=== PATIENT | female | born 1995 | race American Indian/Alaskan Native ===

== ENCOUNTER 2020-11-25 20:52 | Emergency (ER) | payer MEDICAID ==
[~2020-11-25] VITALS: Ht 162.6 cm; Wt 72.7 kg
[2020-11-25 23:49] LABS: URINE HCG NEGATIVE (NEG)
[2020-11-25 23:51] LABS: BASOPHILS % (AUTO) 0.5 % (0-1); EOSINOPHILS % (AUTO) 0.5 % (0-6); HEMATOCRIT 38.7 % (35.0-45.0); HEMOGLOBIN 13.3 g/dl (12.0-16.0); LYMPHOCYTES # (AUTO) 1.2 X10'3 (1.1-4.8); LYMPHOCYTES % (AUTO) 26.7 % (21-51); MEAN CORPUSCULAR HEMOGLOBIN 30.5 PG (27.0-31.0); MEAN CORPUSCULAR HGB CONC 34.2 g/dL (33.0-36.5); MEAN CORPUSCULAR VOLUME 89.1 FL (78-98); MEAN PLATELET VOLUME 8.3 FL (7.4-10.4); MONOCYTES # (AUTO) 0.3 X10'3 (0-0.9); MONOCYTES % (AUTO) 7.3 % (2-12); NEUTROPHILS # (AUTO) 2.9 X10'3 (1.8-7.7); PLATELET COUNT 262 X10'3 (140-440); RED BLOOD COUNT 4.35 X10'6 (4.20-5.60); RED CELL DISTRIBUTION WIDTH 12.9 % (11.5-14.5); WHITE BLOOD COUNT 4.5 X10'3 (4.5-11.0)
[2020-11-26 00:01] LABS: CLARITY,URINE CLOUDY (Clear); COLOR,URINE YELLOW (Yellow); GLUCOSE, URINE NEGATIVE (Neg); KETONES,URINE TRACE mg/dl (Neg); LEUKOCYTE ESTERASE ,URINE SMALL (Neg); NITRITES, URINE NEGATIVE (Neg); OCCULT BLOOD,URINE NEGATIVE (Neg); PH,URINE 6.5 (4.8-8.0); PROTEIN,URINE TRACE mg/dl (Neg)
[2020-11-26 00:03] LABS: ALANINE AMINOTRANSFERASE 35 U/L (12-78); ALBUMIN 3.6 G/DL (3.4-5.0); ALBUMIN/GLOBULIN RATIO 1.2 (1.1-1.5); ALKALINE PHOSPHATASE 70 IU/L (46-116); ANION GAP 9 (8-16); ASPARTATE AMINO TRANSFERASE 18 U/L (10-37); BILIRUBIN,TOTAL 0.3 MG/DL (0.1-1.0); BLOOD UREA NITROGEN 6 MG/DL (7-18); BUN/CREATININE RATIO 8.1 (6.6-38.0); CALCIUM 8.1 MG/DL (8.5-10.1); CHLORIDE 107 MMOL/L (99-107); CREATININE 0.74 MG/DL (0.40-0.90); GLUCOSE 95 MG/DL (70-104); SODIUM 143 MMOL/L (135-145); TOTAL CARBON DIOXIDE 27.1 MMOL/L (24-32); TOTAL PROTEIN 6.7 G/DL (6.4-8.2); eGFR > 90 ML/MIN
[2020-11-26 00:11] LABS: URINE AMPHETAMINE SCREEN POSITIVE (Neg); URINE BARBITUATE SCREEN NEGATIVE (Neg); URINE BENZODIAZEPINES SCREEN NEGATIVE (Neg); URINE CANNABINOID SCREEN POSITIVE (Neg); URINE COCAINE SCREEN NEGATIVE (Neg); URINE METHADONE SCREEN NEGATIVE (Neg); URINE OPIATE SCREEN NEGATIVE (Neg); URINE PHENCYCLIDINE SCREEN NEGATIVE (Neg)
[2020-11-26 00:14] LABS: UA COLLECTION TYPE CLN CATCH MIDSTREAM
[2020-11-26 00:15] LABS: ETHANOL < 0.010 GM/DL (0.0-0.010)
[2020-11-26 00:15] LABS: RBC,URINE NONE SEEN /HPF (0-2); WBC,URINE 0-4 /HPF (0-4)
[2020-11-26 00:16] LABS: BACTERIA,URINE 3+ /HPF (Neg); SQUAMOUS EPITHELIAL CELL,UR MANY /LPF (FEW)
[2020-11-26 00:17] LABS: CAL OXALATE CRYSTALS 4+ /HPF (NEGATIVE); MUCUS STRANDS MANY /LPF (Neg)
--- NOTE | 2020-11-26 03:49 | NUR ---
PT VOICES NO S/I OR H/I. PT MAY BE AN ELOPEMENT RISK. PT STATES " I WAS TESTED POSITIVE IN RESIDENTIAL AND THEY TOLD ME TO COME CHECK ON THE BABY". pT STATES "I CAN FEEL THE BABY UP IN MY NECK BUT ITS STILL ATTACHED". PT APPEAR TO SHOW NO S/S OD ACUTE DISTRESS. VITAL WNL , NO REPORTS OF PAIN.
[2020-11-26] MEDS ORDERED: potassium Cl 20 mEq SR tablet PO STA (04:10)
--- NOTE | 2020-11-26 04:24 | NUR ---
PT USING RACIAL SLURS TOWARDS STAFF MEMBERS. PT YELLING AT MD STATING "IF I CANT BE HERE THEN I DONT WANT TO BE HERE." PT REFUSED ORDERED MEDICATION. AWARE.
[2020-11-26 04:31] VITALS: BP 121/81
== END 2020-11-26 04:40 | disposition home or self-care (01) ==
LOC: EDBD 20:53 → ER 20:53
DX: F19.159 Other psychoactive substance abuse with psychoactive substance-induced psychotic disorder, unspecified (principal); E87.6 Hypokalemia; F12.10 Cannabis abuse, uncomplicated
CPT/HCPCS: 36415; 80053; 80305; 80320; 81001; 81003; 81025; 84443; 85025; 99283

== ENCOUNTER 2020-11-29 21:00 | Emergency (ER) | payer MEDICAID ==
[~2020-11-29] VITALS: Ht 157.5 cm; Wt 68.2 kg
[2020-11-29 21:50] LABS: URINE HCG NEGATIVE (NEG)
[2020-11-29 22:11] LABS: URINE AMPHETAMINE SCREEN POSITIVE (Neg); URINE BARBITUATE SCREEN NEGATIVE (Neg); URINE BENZODIAZEPINES SCREEN NEGATIVE (Neg); URINE CANNABINOID SCREEN POSITIVE (Neg); URINE COCAINE SCREEN NEGATIVE (Neg); URINE METHADONE SCREEN NEGATIVE (Neg); URINE OPIATE SCREEN NEGATIVE (Neg); URINE PHENCYCLIDINE SCREEN NEGATIVE (Neg)
[2020-11-29 22:21] LABS: BASOPHILS % (AUTO) 0.4 % (0-1); EOSINOPHILS # (AUTO) 0.1 X10'3 (0-0.9); EOSINOPHILS % (AUTO) 1.1 % (0-6); HEMATOCRIT 38.7 % (35.0-45.0); HEMOGLOBIN 13.4 g/dl (12.0-16.0); LYMPHOCYTES # (AUTO) 1.7 X10'3 (1.1-4.8); LYMPHOCYTES % (AUTO) 25.9 % (21-51); MEAN CORPUSCULAR HEMOGLOBIN 30.4 PG (27.0-31.0); MEAN CORPUSCULAR HGB CONC 34.6 g/dL (33.0-36.5); MEAN PLATELET VOLUME 7.9 FL (7.4-10.4); MONOCYTES # (AUTO) 0.5 X10'3 (0-0.9); MONOCYTES % (AUTO) 7.2 % (2-12); NEUTROPHILS # (AUTO) 4.3 X10'3 (1.8-7.7); NEUTROPHILS % (AUTO) 65.4 % (42-75); PLATELET COUNT 278 X10'3 (140-440); RED CELL DISTRIBUTION WIDTH 12.7 % (11.5-14.5); WHITE BLOOD COUNT 6.5 X10'3 (4.5-11.0)
[2020-11-29 22:26] LABS: ALANINE AMINOTRANSFERASE 30 U/L (12-78); ALBUMIN 3.9 G/DL (3.4-5.0); ALBUMIN/GLOBULIN RATIO 1.3 (1.1-1.5); ALKALINE PHOSPHATASE 79 IU/L (46-116); ANION GAP 12 (8-16); ASPARTATE AMINO TRANSFERASE 13 U/L (10-37); BILIRUBIN,TOTAL 0.4 MG/DL (0.1-1.0); BLOOD UREA NITROGEN 5 MG/DL (7-18); BUN/CREATININE RATIO 5.9 (6.6-38.0); CALCIUM 8.3 MG/DL (8.5-10.1); CHLORIDE 108 MMOL/L (99-107); CREATININE 0.85 MG/DL (0.40-0.90); ETHANOL < 0.010 GM/DL (0.0-0.010); GLUCOSE 85 MG/DL (70-104); SODIUM 144 MMOL/L (135-145); TOTAL CARBON DIOXIDE 24.1 MMOL/L (24-32); TOTAL PROTEIN 6.8 G/DL (6.4-8.2); eGFR 82 ML/MIN
[2020-11-29] MEDS: potassium Cl 20 mEq SR tablet PO STA ×2 (22:47→23:05)
--- NOTE | 2020-11-29 23:06 | NUR ---
pt refused the potassium replacement medication.
[2020-11-29] MEDS ORDERED: potassium Cl 20 mEq SR tablet PO STA (23:41)
--- NOTE | 2020-11-30 01:44 | NUR ---
PT RESTING WITH EYES CLOSED. RESPIRATIONS EVEN AND NORMAL.
--- NOTE | 2020-11-30 03:39 | NUR ---
PT AWOKE AND GOT OUT OF BED AND ATE A PACKAGE OF CRACKERS THEN GOT BACK INTO BED AND PULLED THE COVERIS TO HER SHOUDERS AND CLOSED HER EYES.
--- NOTE | 2020-11-30 05:11 | NUR ---
Pt remains asleep. Lying on her left side with blankets covering to her shouders. RR 14 and unlabored.
--- NOTE | 2020-11-30 08:24 | NUR ---
PACKET FAXED TO [facility]
--- NOTE | 2020-11-30 11:04 | NUR ---
[facility] ATTEMPT[facility] TO MAKE ARRAINGMENTS WITH PTS SISTER TO COME PICK HER UP.
--- NOTE | 2020-11-30 12:46 | NUR ---
PER [facility] PTS SISTER WILL BE HERE AROUND 1500 TO PICK HER UP
[2020-11-30 14:21] VITALS: BP 113/70
--- NOTE | 2020-11-30 15:18 | NUR ---
Pt family member Wanda, called and said they will be late for pickle solution maker. New ETA is 5pm.
== END 2020-11-30 17:19 | disposition home or self-care (01) ==
LOC: ER 21:01
DX: R45.851 Suicidal ideations (principal); Z20.822 Contact with and (suspected) exposure to COVID-19; E87.6 Hypokalemia; F17.200 Nicotine dependence, unspecified, uncomplicated; F12.90 Cannabis use, unspecified, uncomplicated; Z72.89 Other problems related to lifestyle
CPT/HCPCS: 36415; 80053; 80305; 80320; 81025; 85025; 87635; 99285; C9803; 99284